=== PATIENT | female | born 1965 | race Two or more races ===

== ENCOUNTER → 2017-08-14 | Outpatient (CLI) | payer OTHER | LOC: CFH 10:43 | PROVIDERS: ATTEND Orthopaedic Surgery | DX: Z12.31 Encounter for screening mammogram for malignant neoplasm of breast (principal) | CPT/HCPCS: 77067 ==

== ENCOUNTER → 2017-08-28 | Outpatient (CLI) | payer OTHER | END | disposition home or self-care (01) | LOC: CFH 08:03 | PROVIDERS: ATTEND Family Medicine | DX: N64.89 Other specified disorders of breast (principal); R92.8 Other abnormal and inconclusive findings on diagnostic imaging of breast | CPT/HCPCS: 76642; 77066 ==